=== PATIENT | female | born 1990 | race Caucasian/White ===

== ENCOUNTER 2017-10-08 19:44 | Emergency (ER) | payer SELFPAY ==
[~2017-10-08] VITALS: Ht 162.6 cm; Wt 60.0 kg
[2017-10-08 19:45] VITALS: BP 97/61
[2017-10-08] MEDS ORDERED: LIDOCAINE-MPF 2% ,5ML ONE (20:05)
[2017-10-08] MEDS ORDERED: DIPH,PERTUSS(ACELL),TET VAC/PF 0.5 ML IM-VACC ONE ×2 (20:27→20:30)
[2017-10-08] MEDS ORDERED: LIDOCAINE 2%, 10ML INFIL ONE (20:30)
== END 2017-10-08 21:32 | disposition home or self-care (01) ==
LOC: ED 21:26
DX: S61.212A Laceration without foreign body of right middle finger without damage to nail, initial encounter (principal); X58.XXXA Exposure to other specified factors, initial encounter; Y93.89 Activity, other specified; Y92.89 Other specified places as the place of occurrence of the external cause; Y99.8 Other external cause status
CPT/HCPCS: 12041; 90471; 90715